=== PATIENT | male | born 1980 | race Two or more races ===

== ENCOUNTER 2022-12-27 09:11 | Emergency (ER) | payer OTHER ==
[~2022-12-27] VITALS: Ht 175.3 cm; Wt 72.0 kg
[2022-12-27 09:17] VITALS: O2SAT 99
[2022-12-27] MEDS ORDERED: T3 PO (11:15)
[2022-12-27] MEDS ORDERED: NAPR-681 MT (11:15)
[2022-12-27 11:45] VITALS: BP 132/65; PULSE 70; RESP 20; TEMP 98.1
== END 2022-12-27 11:46 | disposition home or self-care (01) ==
LOC: ER 09:11
DX: S92.351A Displaced fracture of fifth metatarsal bone, right foot, initial encounter for closed fracture (principal); W13.9XXA Fall from, out of or through building, not otherwise specified, initial encounter; Y93.68 Activity, volleyball (beach) (court); Y92.89 Other specified places as the place of occurrence of the external cause; Y99.8 Other external cause status
CPT/HCPCS: 29515; 73610; 73630; 99284